=== PATIENT | male | born 1955 | race Caucasian/White ===

== ENCOUNTER 2019-01-09 15:21 | Emergency (ER) | payer MEDICAID ==
[~2019-01-09] VITALS: Ht 172.7 cm; Wt 75.0 kg
[~2019-01-09 15:21] MED LIST: NO HOME MEDS
[2019-01-09 15:26] VITALS: BP 148/90
[2019-01-09] MEDS ORDERED: TRAM50TA2 PO (16:51)
== END 2019-01-09 17:14 | disposition home or self-care (01) ==
LOC: ER 15:22
DX: R07.81 Pleurodynia (principal); N18.9 Chronic kidney disease, unspecified; F15.90 Other stimulant use, unspecified, uncomplicated; Z88.0 Allergy status to penicillin
CPT/HCPCS: 71101; 99283

== ENCOUNTER 2019-01-27 11:35 | Inpatient (IN) | payer MEDICAID | END 2019-02-02 22:32 | LOC: ER 11:35 → PCU 3S 01-28 07:05 → ED HOLD 18:02 ==